=== PATIENT | female | born 1990 | race African-American/Black ===

== ENCOUNTER 2018-09-19 09:29 | Emergency (ER) | payer SELFPAY ==
[2018-09-19 09:37] VITALS: BP 112/57; PULSE 74; TEMP 98.2; BMI 26.6
--- NOTE | 2018-09-19 09:41 | PDOC ---
History of Present Illness - General Chief Complaint: Respiratory Stated Complaint: HEADACHE, COUGHING, THROAT PAIN Time Seen by Provider: 09/19/18 09:39 History Source: Patient Exam Limitations: No Limitations - History of Present Illness Initial Comments: 09/19/18 09:41 Patient is a 28-year-old female with past medical history of asthma, who presents to the emergency department today for 5 days of frontal headache, cold- like symptoms, and sore throat. Patient states that the sore throat has resolved however she is still with nasal pressure and headaches. She states that her mother usually gets sinus infections. Denies fevers, chills, difficulty breathing, shortness of breath, nausea, vomiting and diarrhea. Patient states that her house is also very dry at night. She states that she just bought a humidifier. Pt has tried multiple OTC's including Afrin (started on 09/18/18), tylenol cold and sinus, and dayquil/nyquil with little relief of symptoms Past History - Travel Traveled outside of the country in the last 30 days: No Close contact w/someone who was outside of country & ill: No - Past Medical History Allergies/Adverse Reactions: Allergies Allergy/AdvReac Type Severity Reaction Status Date / Time No Known Allergies Allergy Verified 09/19/18 09:34 Home Medications: Ambulatory Orders Amox-Tr/K Cl [Augmentin - 875Mg Tablet] 1 tab PO BID #20 tablet 09/19/18 Asthma: Yes COPD: No - Suicide/Smoking/Psychosocial Hx Smoking History: Never smoked Review of Systems - Review of Systems Able to Perform ROS?: Yes Comments:: 09/19/18 09:40 CONSTITUTIONAL: Absent: fever, chills, diaphoresis, generalized weakness, malaise, loss of appetite HEENT: Present: nasal congestion Absent: rhinorrhea, nasal congestion, throat pain, throat swelling, difficulty swallowing, mouth swelling, ear pain, eye pain, visual Changes CARDIOVASCULAR: Absent: chest pain, loss of consciousness, palpitations, irregular heart rate, peripheral edema RESPIRATORY: Present: cough Absent: shortness of breath, dyspnea with exertion, orthopnea, wheezing, stridor, hemoptysis GASTROINTESTINAL: Absent: abdominal pain, abdominal distension, nausea, vomiting, diarrhea, constipation, melena, hematochezia GENITOURINARY: Absent: dysuria, frequency, urgency, hesitancy, hematuria, flank pain, genital pain MUSCULOSKELETAL: Absent: myalgia, arthralgia, joint swelling SKIN: Absent: rash, itching, pallor HEMATOLOGIC/IMMUNOLOGIC: Absent: easy bleeding, easy bruising, lymphadenopathy, frequent infections ENDOCRINE: Absent: unexplained weight gain, unexplained weight loss, heat intolerance, cold intolerance NEUROLOGIC: Present: headache Absent focal weakness or paresthesias, dizziness, unsteady gait, seizure, mental status changes, bladder or bowel incontinence PSYCHIATRIC: Absent: anxiety, depression, suicidal or homicidal ideation, hallucinations. Is the patient limited Bulgarian proficient: No *Physical Exam - Vital Signs Last Vital Signs Temp Pulse Resp BP Pulse Ox 98.2 F 74 19 112/57 L 99 09/19/18 09:34 09/19/18 09:34 09/19/18 09:34 09/19/18 09:34 09/19/18 09:34 - Physical Exam Comments: 09/19/18 09:40 GENERAL: Well developed, well nourished. Awake and alert. No acute distress. HEENT: Normocephalic, atraumatic. PERRLA, EOMI. No conjunctival pallor. Sclera are non- icteric. Moist mucous membranes. Oropharynx is clear. TTP of the maxillary sinuses b/l. NECK: Supple. Full ROM. No JVD. Carotid pulses 2+ and symmetric, without bruits. No thyromegaly. No lymphadenopathy. CARDIOVASCULAR: Regular rate and rhythm. No murmurs, rubs, or gallops. Distal pulses are 2+ and symmetric. PULMONARY: No evidence of respiratory distress. Lungs clear to auscultation bilaterally. No wheezing, rales or rhonchi. ABDOMINAL: Soft. Non-tender. Non-distended. No rebound or guarding. No organomegaly. Normoactive bowel sounds. MUSCULOSKELETAL Normal range of motion at all joints. No bony deformities or tenderness. No CVA tenderness. EXTREMITIES: No cyanosis. No clubbing. No edema. No calf tenderness. SKIN: Warm and dry. Normal capillary refill. No rashes. No jaundice. NEUROLOGICAL: Alert, awake, appropriate. Cranial nerves 2-12 intact. No deficits to light touch and temperature in face, upper extremities and lower extremities. No motor deficits in the in face, upper extremities and lower extremities. Normoreflexic in the upper and lower extremities. Normal speech. Toes are down- going bilaterally. Gait is normal without ataxia. PSYCHIATRIC: Cooperative. Good eye contact. Appropriate mood and affect. 09/19/18 09:58 Moderate Sedation - Procedure Monitoring Vital Signs: Procedure Monitoring Vital Signs Temperature 98.2 F 09/19/18 09:34 Pulse Rate 74 12 09:34 Respiratory Rate 19 09/19/18 09:34 Blood Pressure 112/57 L 09/19/18 09:34 O2 Sat by Pulse Oximetry (%) 99 09/19/18 09:34 Medical Decision Making - Medical Decision Making 09/19/18 09:59 Patient is a 28-year-old female who presents to the emergency department with 5- 7 days of nasal congestion, frontal headaches and nasal pain. On exam patient with maxillary sinus tenderness. Most likely an acute sinusitis. Patient is tried multiple OTCs with little relief of symptoms. Given length of symptoms we'll start an antibiotic at this time. No ALLERGIES to medications. We'll start Augmentin. ENT follow-up given. Discharge home. I discussed the physical exam findings, ancillary test results and final diagnoses with the patient. I answered all of the patient's questions. The patient was satisfied with the care received and felt comfortable with the discharge plan and treatment plan. The Patient agrees to follow up with the primary care physician/specialist within 24-72 hours. Return precautions were given. *DC/Admit/Observation/Transfer Diagnosis at time of Disposition: Sinusitis Qualifiers: Sinusitis location: maxillary Chronicity: acute Recurrence: non-recurrent Qualified Code(s): J01.00 - Acute maxillary sinusitis, unspecified - Discharge Dispostion Disposition: HOME Condition at time of disposition: Stable Decision to Admit order: No - Referrals Referrals: Sreedhar Aguila MD [Staff Physician] - - Patient Instructions Printed Discharge Instructions: DI for Sinusitis Additional Instructions: You have a sinus infection or sinusitis. Please take the Augmentin twice a day for 10 days. Please eat before taking the medication. You may continue to use the Afrin for 2 more days. Discontinue after Friday as to prevent rebound congestion. You may also purchase the Alisson pot to help with your congestion. Start using the humidifier at night. If your symptoms are not improving within a week please follow-up with an ENT specialist referral has been provided. Return to the emergency department for fevers, worsening headache, lightheadedness, dizziness, or if you have any changes in your symptoms. - Post Discharge Activity Forms/Work/School Notes: Back to Work
== END 2018-09-19 10:08 | disposition home or self-care (01) ==
LOC: JERFT 09:29
DX: J01.00 Acute maxillary sinusitis, unspecified (principal)
CPT/HCPCS: 99281-25

== ENCOUNTER 2020-10-23 11:20 | Emergency (ER) | payer OTHER ==
[2020-10-23 11:27] VITALS: BP 111/70; PULSE 76; TEMP 98.7; BMI 22.7
[2020-10-23] MEDS ORDERED: DEXAMETHASONE SOD PHOSPHATE 10 MG/1 ML VIAL ONE (11:41)
[2020-10-23] MEDS ORDERED: ALBUTEROL SO4 2.5/IPRATROPIUM 0.5 INH SOL 3 ML VIAL.NEB. NEB ONE ×2 (11:42→11:46)
[2020-10-23] MEDS ORDERED: DEXAMETHASONE LIQUID 0.5 MG/5 ML PO ONE (11:46)
[2020-10-23] MEDS ORDERED: SODIUM CHLORIDE FOR INHALATION 3 ML VIAL.NEB IH ONE (11:57)
== END 2020-10-23 12:30 | disposition home or self-care (01) ==
LOC: JER 11:20
PROC: 3E0F7GC Introduction of Other Therapeutic Substance into Respiratory Tract, Via Natural or Artificial Opening (ICD-10-PCS; principal; 2020-10-23)
DX: J98.01 Acute bronchospasm (principal); Z11.52 Encounter for screening for COVID-19
CPT/HCPCS: 71046-TC-FY; 87426; 99284-25

== ENCOUNTER 2021-07-08 16:07 | Emergency (ER) | payer OTHER ==
[2021-07-08 16:14] VITALS: BP 116/58; PULSE 83; TEMP 98.5; BMI 23.5
[2021-07-08] MEDS ORDERED: DEXAMETHASONE LIQUID 0.5 MG/5 ML PO ONE (17:04)
[2021-07-08] MEDS ORDERED: DEXAMETHASONE SOD PHOSPHATE 10 MG/1 ML VIAL ONE (17:05)
== END 2021-07-08 18:17 | disposition home or self-care (01) ==
LOC: JER 16:07
DX: J45.909 Unspecified asthma, uncomplicated (principal); J98.01 Acute bronchospasm; J01.10 Acute frontal sinusitis, unspecified
CPT/HCPCS: 87880; 99283-25; C9803; U0003; U0005

== ENCOUNTER 2023-11-30 07:21 | Emergency (ER) | payer OTHER ==
[2023-11-30 07:27] VITALS: BP 115/73; PULSE 103; RESP 18; TEMP 98; BMI 26.6
[2023-11-30] MEDS ORDERED: IBUPROFEN 600 MG TABLET (FP) PO ONE (09:27)
[2023-11-30] MEDS: IBUPROFEN 600 MG TABLET (FP) PO ONE (09:29)
== END 2023-11-30 10:08 | disposition home or self-care (01) ==
LOC: JER 07:21
DX: J10.1 Influenza due to other identified influenza virus with other respiratory manifestations (principal); R05.9 Cough, unspecified; R07.0 Pain in throat; R50.9 Fever, unspecified; R07.9 Chest pain, unspecified; Z20.822 Contact with and (suspected) exposure to COVID-19
CPT/HCPCS: 0241U-QW; 71046-TC-FY; 87651; 93005; 93010; 99285-25

== ENCOUNTER 2024-04-13 08:59 | Emergency (ER) | payer OTHER ==
[2024-04-13 09:04] VITALS: BP 113/61; PULSE 81; RESP 20; TEMP 98.9; BMI 26.6
[2024-04-13 10:06] LABS: URINE APPEARANCE CLOUDY; URINE BILIRUBIN NEGATIVE (NEGATIVE); URINE COLOR YELLOW; URINE GLUCOSE (UA) NEGATIVE (NEGATIVE); URINE KETONE TRACE (NEGATIVE); URINE LEUK ESTERASE NEGATIVE (NEGATIVE); URINE NITRITE NEGATIVE (NEGATIVE); URINE PROTEIN TRACE (NEGATIVE); URINE UROBILINOGEN 0.2 mg/dL (0.2-1.0)
[2024-04-13 10:10] LABS: HCG,QUALITATIVE URINE Negative
== END 2024-04-13 10:30 | disposition home or self-care (01) ==
LOC: JERFT 08:59
DX: R11.0 Nausea (principal); R33.9 Retention of urine, unspecified
CPT/HCPCS: 81003; 84703; 87086; 99283-25

== ENCOUNTER 2024-08-01 09:35 | Emergency (ER) | payer OTHER ==
[2024-08-01 09:40] VITALS: BP 117/65; PULSE 112; RESP 18; TEMP 98; BMI 27.3
[2024-08-01 10:27] LABS: PH,URINE 6.5 (5.0-8.0); URINE APPEARANCE CLEAR; URINE BILIRUBIN NEGATIVE (NEGATIVE); URINE COLOR YELLOW; URINE GLUCOSE (UA) NEGATIVE (NEGATIVE); URINE KETONE NEGATIVE (NEGATIVE); URINE LEUK ESTERASE NEGATIVE (NEGATIVE); URINE NITRITE NEGATIVE (NEGATIVE); URINE PROTEIN NEGATIVE (NEGATIVE); URINE UROBILINOGEN 0.2 mg/dL (0.2-1.0)
== END 2024-08-01 10:43 | disposition home or self-care (01) ==
LOC: JER 09:35
DX: R10.31 Right lower quadrant pain (principal); R51.9 Headache, unspecified; R09.81 Nasal congestion; Z32.02 Encounter for pregnancy test, result negative
CPT/HCPCS: 81003; 84703; 87086; 99283-25